=== PATIENT | female | born 1945 | race Caucasian/White ===

== ENCOUNTER → 2018-11-30 | Outpatient (CLI) | payer MEDICARE, OTHER ==
[2018-11-30 11:08] LABS: Alanine Aminotransfer (ALT/SGP 18 U/L (12-78); Albumin, Blood 3.9 g/dL (3.4-5.0); Albumin/Globulin Ratio 1.1 (0.8-1.8); Alk Phos 89 U/L (50-136); Anion Gap 7 mmol/L (6-16); Aspartate Aminotrans (AST/SGOT 14 U/L (12-37); Bilirubin, Total 0.5 mg/dL (0.1-1.0); Blood Urea Nitrogen 29 mg/dL (8-24); CHOL/HDL RATIO 4.1; CO2, Blood 28 mmol/L (21-32); Calcium, Blood 9.2 mg/dL (8.5-10.1); Chloride, Blood 107 mmol/L (98-108); Cholesterol 215 mg/dL (50-200); Creatinine, Blood 0.81 mg/dL (0.40-1.00); Globulin, Blood 3.7 g/dL (2.2-4.0); Glomerular Filtration Rate >60 (60-); Glucose, Blood 93 mg/dL (70-99); HDL Cholesterol 52 mg/dL (>39); LDL/HDL RATIO 2.7; Low Density Lipoprotein Chol 141 mg/dL (0-110); Potassium, Blood 4.2 mmol/L (3.5-5.5); Sodium, Blood 142 mmol/L (136-145); Total Protein, Blood 7.6 g/dL (6.4-8.2); Triglycerides 112 mg/dL (30-160); Very Low Density Lipoprot Chol 22 mg/dL (6-32)
== END | disposition home or self-care (01) ==
LOC: LAB SHORT 10:41 → LAB 10:41
PROVIDERS: Family Medicine
DX: E78.49 Other hyperlipidemia (principal); I10 Essential (primary) hypertension
CPT/HCPCS: 80053; 80061